=== PATIENT | male | born 1985 | race Two or more races ===

== ENCOUNTER 2020-01-04 08:56 | Outpatient (CLI) | payer OTHER | END 2020-01-04 09:15 | disposition home or self-care (01) | LOC: SONOGRAMA 08:56 | PROVIDERS: ATTEND Specialist | DX: D21.22 Benign neoplasm of connective and other soft tissue of left lower limb, including hip (principal) ==

== ENCOUNTER 2020-02-13 06:00 | Day surgery (SDC) | payer OTHER | END 2020-02-13 11:33 | disposition home or self-care (01) | LOC: CIR.AMB 06:00 → ADM 07:00 → CIR.AMB 11:33 | PROVIDERS: ATTEND Specialist | DX: D17.24 Benign lipomatous neoplasm of skin and subcutaneous tissue of left leg (principal) ==

== ENCOUNTER 2020-04-01 09:33 | Inpatient (IN) | payer OTHER ==
[~2020-04-01] VITALS: Ht 180.3 cm; Wt 83.9 kg
[2020-04-02] MEDS ORDERED: COLLAGEN (09:51)
[2020-04-02] MEDS ORDERED: OMEGA 3 1,0001 EACH PO (09:51)
[2020-04-02] MEDS ORDERED: MSM500 MG PO (09:51)
[2020-04-02] MEDS ORDERED: GINGER TEA (09:51)
[2020-04-02] MEDS ORDERED: VITAMIN B122500 MCG PO (09:52)
== END 2020-04-04 17:13 | disposition home or self-care (01) | DRG 813 ==
LOC: ER 09:33 → MEDJ 18:00
PROVIDERS: ADMIT Internal Medicine; ATTEND Internal Medicine
PROC: 4A033R1 Measurement of Arterial Saturation, Peripheral, Percutaneous Approach (ICD-10-PCS; principal; 2020-04-01)
PROC: 8E0ZXY6 Isolation (ICD-10-PCS; 2020-04-01)
DX: D69.6 Thrombocytopenia, unspecified (principal); D70.8 Other neutropenia; R50.81 Fever presenting with conditions classified elsewhere; B34.9 Viral infection, unspecified; Z03.818 Encounter for observation for suspected exposure to other biological agents ruled out

== ENCOUNTER 2023-11-30 15:01 | Outpatient (CLI) | payer OTHER ==
[~2023-11-30 15:01] MED LIST: COLLAGEN; GINGER TEA; MSM500 MG PO; OMEGA 3 1,0001 EACH PO; VITAMIN B122500 MCG PO
== END 2023-11-30 15:27 | disposition home or self-care (01) ==
LOC: SONOGRAMA 15:01
PROVIDERS: ATTEND General Practice
DX: N20.9 Urinary calculus, unspecified (principal)